=== PATIENT | male | born 2000 | race Two or more races ===

== ENCOUNTER 2020-09-24 04:08 | Emergency (ER) | payer BC ==
[~2020-09-24] VITALS: Ht 167.6 cm; Wt 77.1 kg
--- NOTE | 2020-09-24 04:06 | NUR ---
Jung platt, brother [phone]
--- NOTE | 2020-09-24 04:10 | NUR ---
ED Nurse Note: Pt brought in by RA Feliciano from apartment, pt was in respiratory depression at a alliance party, pt was found RR 6 pupils pinpoint and unresponsive, pills laying around. Pt was given 2 nasal sprays of narcan, 10 mins later pt came to. Pt is A&Ox2, VSS. pt placed on desk monitor, blood sent to lab, will continue to monitor
--- NOTE | 2020-09-24 04:15 | Emergency Room Report ---
History of Present Illness General Chief Complaint: Substance Abuse Source: Patient (Romie Kemp MD) Present Illness HPI Disclaimer: Please note that this report is being documented using [employer] technology. This can lead to erroneous entry secondary to incorrect interp retation by the dictating instrument. HPI: 20-year-old male brought in by EMS for suspected overdose. EMS states he was in a hotel with other people and found unresponsive. Agonal breathing was noted and patient was given 2 sprays of intranasal Narcan which improved his mental status. He is awake and alert. He reports taking pills for recreational purposes. He believes there is Xanax but cannot be sure. Does not recall how many he took. Does not know dosage. Denies injecting any drugs, snorting sub stances. Denies alcohol use. Has no complaints right now. Feels sleepy but otherwise states he just feels embarrassed. States this is recreational. Has not attempted to harm himself. Has no thoughts of suicide or homicide. PMH: Denied PSH: Denied Allergies: Denied Social Hx: Recreational drug use (Romie Kemp MD) Allergies: Coded Allergies: No Known Allergies (Unverified , 09/24/20) COVID-19 Screening Contact w/high risk pt: No Experienced COVID-19 symptoms?: No COVID-19 Testing performed AGRICULTURE SPECIALIST: No (Romie Kemp MD) Nursing Documentation-PM Past Medical History: No Stated History (Romie Kemp MD) Review of Systems All Other Systems: negative except mentioned in HPI (Romie Kemp MD) Physical Exam Vital Signs Date Time Temp Pulse Resp B/P (MAP) Pulse Ox O2 Delivery O2 Flow Rate FiO2 09/24/20 04:02 98.2 110 16 139/87 (104) 98 Room Air General: Awake and alert, no acute distress HEENT: NC/AT. EOMI. pupils are 4 mm and reactive bilaterally. No nystagmus. Moist mucous membranes. Cardiovascular: Slightly tachycardic. S1 and S2 normal. No murmur appreciated Resp: Normal work of breathing. No cough, wheezing or crackles appreciated Abdomen: Abdomen is soft, nondistended. Nontender Skin: Intact. No abrasions, laceration or rash over the exposed skin MSK: Normal tone and bulk. Moving all extremities. No obvious deformity. Neuro: Awake and alert. Mentating appropriately. GCS 15. (Romie Kemp MD) Medical Decision Making Diagnostic Impression: Primary Impression: Overdose Additional Impression: Substance abuse ER Course 20-year-old male brought in for suspected overdose. Reports this is recreational and took tablets of unknown drug but believes they were benzodiazepines. Unknown how many or what dosage these may have been. Denies coingestants. Mentating appropriately, GCS 15, breathing comfortably at this time. Does not require any Narcan. Arrives with stable vital signs. CBC and chemistry largely unremarkable. Tox screen positive for benzodiazepines and marijuana. We will continue to monitor and if his condition remained stable he may be discharged with outpatient follow-up. Prescriptions for naloxone written. Signed out to oncoming provider pending reevaluation and final disposition. Laboratory Tests Test 09/24/20 04:24 09/24/20 05:25 White Blood Count 5.8 K/UL (4.8-10.8) Red Blood Count 4.26 M/UL (4.70-6.10) L Hemoglobin 14.7 G/DL (14.2-18.0) Hematocrit 39.9 % (42.0-52.0) L Mean Corpuscular Volume 94 FL (80-99) Mean Corpuscular Hemoglobin 34.4 PG (27.0-31.0) H Mean Corpuscular Hemoglobin Concent 36.8 G/DL (32.0-36.0) H Red Cell Distribution Width 14.4 % (11.6-14.8) Platelet Count 202 K/UL (150-450) Mean Platelet Volume 6.2 FL (6.5-10.1) L Neutrophils (%) (Auto) 72.1 % (45.0-75.0) Lymphocytes (%) (Auto) 17.6 % (20.0-45.0) L Monocytes (%) (Auto) 7.2 % (1.0-10.0) Eosinophils (%) (Auto) 1.8 % (0.0-3.0) Basophils (%) (Auto) 1.4 % (0.0-2.0) Sodium Level 138 MMOL/L (136-145) Potassium Level 4.0 MMOL/L (3.5-5.1) Chloride Level 103 MMOL/L (98-107) Carbon Dioxide Level 28 MMOL/L (21-32) Anion Gap 7 mmol/L (5-15) Blood Urea Nitrogen 14 mg/dL (7-18) Creatinine 1.3 MG/DL (0.55-1.30) Estimated Glomerular Filtration Rate > 60 mL/min (>60) Glucose Level 201 MG/DL (74-106) H Calcium Level 8.7 MG/DL (8.5-10.1) Total Bilirubin 1.1 MG/DL (0.2-1.0) H Direct Bilirubin 0.4 MG/DL (0.0-0.3) H Aspartate Amino Transferase (AST) 19 U/L (15-37) Alanine Aminotransferase (ALT) 18 U/L (12-78) Alkaline Phosphatase 42 U/L (46-116) L Total Protein 7.0 G/DL (6.4-8.2) Albumin 4.1 G/DL (3.4-5.0) Globulin 2.9 g/dL Albumin/Globulin Ratio 1.4 (1.0-2.7) Salicylates Level < 0.2 ug/mL (2.8-20) L Acetaminophen Level < 2 MCG/ML (10-30) L Serum Alcohol < 3 mg/dL Urine Opiates Screen Negative (NEGATIVE) Urine Barbiturates Screen Negative (NEGATIVE) Phencyclidine (PCP) Screen Negative (NEGATIVE) Urine Amphetamines Screen Negative (NEGATIVE) Urine Benzodiazepines Screen Positive (NEGATIVE) H Urine Cocaine Screen Negative (NEGATIVE) Urine Marijuana (THC) Screen Positive (NEGATIVE) H (Romie Kemp MD) ER Course Please see above note. Patient has been observed for several hours. He is awake. Patient denies suicidal ideation or intent. Discussed with patient circumstances that brought him here and the results of the tox screen. Discussed with patient the need for follow-up with his own doctor and also for consideration for 12-step. Discussed that Narcan is being prescribed. Patient stable for outpatient observation and treatment. Laboratory Tests Test 09/24/20 04:24 09/24/20 05:25 White Blood Count 5.8 K/UL (4.8-10.8) Red Blood Count 4.26 M/UL (4.70-6.10) L Hemoglobin 14.7 G/DL (14.2-18.0) Hematocrit 39.9 % (42.0-52.0) L Mean Corpuscular Volume 94 FL (80-99) Mean Corpuscular Hemoglobin 34.4 PG (27.0-31.0) H Mean Corpuscular Hemoglobin Concent 36.8 G/DL (32.0-36.0) H Red Cell Distribution Width 14.4 % (11.6-14.8) Platelet Count 202 K/UL (150-450) Mean Platelet Volume 6.2 FL (6.5-10.1) L Neutrophils (%) (Auto) 72.1 % (45.0-75.0) Lymphocytes (%) (Auto) 17.6 % (20.0-45.0) L Monocytes (%) (Auto) 7.2 % (1.0-10.0) Eosinophils (%) (Auto) 1.8 % (0.0-3.0) Basophils (%) (Auto) 1.4 % (0.0-2.0) Sodium Level 138 MMOL/L (136-145) Potassium Level 4.0 MMOL/L (3.5-5.1) Chloride Level 103 MMOL/L (98-107) Carbon Dioxide Level 28 MMOL/L (21-32) Anion Gap 7 mmol/L (5-15) Blood Urea Nitrogen 14 mg/dL (7-18) Creatinine 1.3 MG/DL (0.55-1.30) Estimated Glomerular Filtration Rate > 60 mL/min (>60) Glucose Level 201 MG/DL (74-106) H Calcium Level 8.7 MG/DL (8.5-10.1) Total Bilirubin 1.1 MG/DL (0.2-1.0) H Direct Bilirubin 0.4 MG/DL (0.0-0.3) H Aspartate Amino Transferase (AST) 19 U/L (15-37) Alanine Aminotransferase (ALT) 18 U/L (12-78) Alkaline Phosphatase 42 U/L (46-116) L Total Protein 7.0 G/DL (6.4-8.2) Albumin 4.1 G/DL (3.4-5.0) Globulin 2.9 g/dL Albumin/Globulin Ratio 1.4 (1.0-2.7) Salicylates Level < 0.2 ug/mL (2.8-20) L Acetaminophen Level < 2 MCG/ML (10-30) L Serum Alcohol < 3 mg/dL Urine Opiates Screen Negative (NEGATIVE) Urine Barbiturates Screen Negative (NEGATIVE) Phencyclidine (PCP) Screen Negative (NEGATIVE) Urine Amphetamines Screen Negative (NEGATIVE) Urine Benzodiazepines Screen Positive (NEGATIVE) H Urine Cocaine Screen Negative (NEGATIVE) Urine Marijuana (THC) Screen Positive (NEGATIVE) H (Jv Mosley MD) Rhythm Strip Diag. Results EP Interpretation: yes Rhythm: NSR, no PVC's, no ectopy (Jv Mosley MD) Last Vital Signs Date Time Temp Pulse Resp B/P (MAP) Pulse Ox O2 Delivery O2 Flow Rate FiO2 09/24/20 04:02 98.2 110 16 139/87 (104) 98 Room Air (Romie Kemp MD) Last Vital Signs Date Time Temp Pulse Resp B/P (MAP) Pulse Ox O2 Delivery O2 Flow Rate FiO2 09/24/20 07:31 97.5 72 18 123/68 97 Room Air Status: improved (Jv Mosley MD) Disposition: HOME, SELF-CARE Condition: Improved Scripts Naloxone Hcl (NALOXONE HCL*) 0.4 Mg/1 Ml Vial 0.4 MG IJ ONCE, #1 VIAL Prov: Romie Kemp MD 09/24/20 Naloxone HCl (Narcan) 4 Mg [facility] 4 MG NS ONCE for 1 Day, #1 SPRAY Prov: Romie Kemp MD 09/24/20 Romie Kemp MD Sep 24, 2020 04:15 Jv Mosley MD Sep 24, 2020 07:19
[2020-09-24 04:34] LABS: BASOPHILS % (AUTO) 1.4 % (0.0-2.0); EOSINOPHILS % (AUTO) 1.8 % (0.0-3.0); HEMATOCRIT 39.9 % (42.0-52.0); HEMOGLOBIN 14.7 G/DL (14.2-18.0); LYMPHOCYTES % (AUTO) 17.6 % (20.0-45.0); MEAN CORPUSCULAR VOLUME 94 FL (80-99); MONOCYTES % (AUTO) 7.2 % (1.0-10.0); NEUTROPHILS % (AUTO) 72.1 % (45.0-75.0); PLATELET COUNT 202 K/UL (150-450); RED BLOOD COUNT 4.26 M/UL (4.70-6.10); RED CELL DISTRIBUTION WIDTH 14.4 % (11.6-14.8); WHITE BLOOD COUNT 5.8 K/UL (4.8-10.8)
[2020-09-24 04:45] LABS: ANION GAP 7 mmol/L (5-15); BLOOD UREA NITROGEN 14 mg/dL (7-18); CALCIUM 8.7 MG/DL (8.5-10.1); CARBON DIOXIDE 28 MMOL/L (21-32); CHLORIDE 103 MMOL/L (98-107); CREATININE 1.3 MG/DL (0.55-1.30); SODIUM 138 MMOL/L (136-145)
[2020-09-24 04:57] LABS: ALANINE AMINOTRANSFERASE 18 U/L (12-78); ALBUMIN 4.1 G/DL (3.4-5.0); ALBUMIN/GLOBULIN RATIO 1.4 (1.0-2.7); ALKALINE PHOSPHATASE 42 U/L (46-116); ASPARTATE AMINO TRANSFERASE 19 U/L (15-37); BILIRUBIN,TOTAL 1.1 MG/DL (0.2-1.0)
[2020-09-24 05:06] LABS: BILIRUBIN,DIRECT 0.4 MG/DL (0.0-0.3)
--- NOTE | 2020-09-24 05:27 | NUR ---
HAND-OFF: Report given to MARILY Niño.
--- NOTE | 2020-09-24 05:29 | NUR ---
ED Nurse Note: Received pt awake,A&Ox3-4, and verbal. Pt has no sob and distress. Vitals are stable; RR 16, HR98, O2 97%, and bp 115/69.
[2020-09-24 05:35] VITALS: BP 126/69
[2020-09-24] MEDS ORDERED: NALOXONE H0.4 MG/12 IJ (05:55)
[2020-09-24] MEDS ORDERED: NARCAN4 MG NS (05:55)
--- NOTE | 2020-09-24 06:59 | NUR ---
ED Nurse Note: Report given to MARILY edmond
[2020-09-24 07:10] VITALS: BP 123/68
--- NOTE | 2020-09-24 07:10 | NUR ---
ED Nurse Note: received report from leslie ruff.
[2020-09-24 07:31] VITALS: BP 123/68
--- NOTE | 2020-09-24 07:34 | NUR ---
ED Nurse Note: Pt cleared by health care Provider for discharge. DC instructions/prescription was given and explained to pt and verbalized understanding of teachings. All medical deviecs such as ID band and iv removed. Pt is AAO x4, ambulatory and left with all personal belongings.
== END 2020-09-24 07:35 | disposition home or self-care (01) ==
LOC: EDBD 04:08 → EMR 04:37
DX: T50.901A Poisoning by unspecified drugs, medicaments and biological substances, accidental (unintentional), initial encounter (principal); F12.10 Cannabis abuse, uncomplicated; F19.10 Other psychoactive substance abuse, uncomplicated
CPT/HCPCS: 36415; 80053; 80307; 82248; 85025; 99284; G0480